=== PATIENT | female | born 1985 | race Caucasian/White ===

== ENCOUNTER 2022-04-30 21:21 | Emergency (ER) | payer MEDICAID ==
[2022-04-30] MEDS ORDERED: Ketorolac 60 MG/2 ML SDV IM ONE (21:43)
== END 2022-04-30 22:14 | disposition home or self-care (01) ==
LOC: LB.ED 21:21
DX: N89.8 Other specified noninflammatory disorders of vagina (principal); F17.210 Nicotine dependence, cigarettes, uncomplicated; Z88.0 Allergy status to penicillin
CPT/HCPCS: 96372; 99281; 99283; J1885